=== PATIENT | male | born 1960 | race Caucasian/White ===

== ENCOUNTER 2016-03-25 09:55 | Emergency (ER) | payer OTHER ==
[2016-03-25 11:15] VITALS: BP 123/79
--- NOTE | 2016-03-25 12:30 | RAD ---
Indication: Medial RIGHT knee pain for 3 days following twisting injury with instability 3 days ago. Comparison: None. Technique: AP, tunnel, lateral, sunrise views RIGHT knee. Report: Normal alignment. Negative for effusion or fracture. Minimal medial and patellofemoral joint osteophytosis. Negative for significant joint space narrowing. Unremarkable soft tissue contours. IMPRESSION: No traumatic injury evident.
--- NOTE | 2016-03-25 12:46 | UC ---
Knee Pain HPI - HPI Summary HPI Summary: pt reports emmie he was walking at work on tuesday and stepped over an time on the floor and when he put his right foot down, his right knee "gave out" heard a "pop" had sudden onset of pain and swelling to right medial aspect of knee. c/o pain has worsened since onset, pain is with weight bearing and has limited ROM secondary to pain. - History of Current Complaint Chief Complaint: UCLowerExtremity Stated Complaint: RIGHT KNEE PAIN-WC Time Seen by Provider: 03/25/16 11:42 Hx Obtained From: Patient Onset/Duration: Sudden Onset, Lasting Days Severity Initially: Moderate Severity Currently: Moderate Character: Dull, Aching, Stiffness Aggravating Factor(s): Movement, Weight Bearing, Prolonged Standing, Stairs Alleviating Factor(s): Rest, Position Associated Signs And Symptoms: Positive: Swelling, Bruising Able to Bear Weight: Yes - minimal - Risk Factors Gout Risk Factor: Male - Allergies/Home Medications Allergies/Adverse Reactions: Allergies Allergy/AdvReac Type Severity Reaction Status Date / Time No Known Allergies Allergy Verified 03/25/16 11:15 Home Medications: Home Medications Ibuprofen TAB* [Motrin TAB* 800 MG] 800 mg PO Q6H PRN 03/25/16 [History Confirmed 03/25/16] PMH/Surg Hx/FS Hx/Imm Hx Previously Healthy: Yes Endocrine History Of: Denies: Diabetes, Thyroid Disease Cardiovascular History Of: Reports: Hypertension Denies: Cardiac Disorders Respiratory History Of: Denies: COPD, Asthma GI/ History Of: Denies: Ulcer - Surgical History Surgical History: Yes Surgery Procedure, Year, and Place: right shoulder replacement 2011 - Family History Known Family History: Positive: Cardiac Disease - Social History Occupation: Employed Full-time Lives: With Family Alcohol Use: Occasionally Substance Use Type: None Smoking Status (MU): Heavy Every Day Tobacco Smoker Amount Used/How Often: 7 cigs per day Length of Time of Smoking/Using Tobacco: started age 22 Review of Systems Constitutional: Negative Skin: Bruising - small lmedial aspect right knee Eyes: Negative ENT: Negative Respiratory: Negative Cardiovascular: Negative Gastrointestinal: Negative Genitourinary: Negative Motor: Decreased ROM - secondary to pain, Weakness - right knee econdary to pain Neurovascular: Negative Musculoskeletal: Arthralgia - right knee, Decreased ROM - right knee, Edema - medial aspect right knee, Myalgia Neurological: Negative Psychological: Negative All Other Systems Reviewed And Are Negative: Yes Physical Exam Triage Information Reviewed: Yes Appearance: Well-Appearing Vital Signs: Initial Vital Signs Temp 98.5 F 03/25/16 11:11 Pulse 83 03/25/16 11:11 Resp 16 03/25/16 11:11 BP 123/79 03/25/16 11:11 Pulse Ox 99 03/25/16 11:11 Vital Signs Reviewed: Yes Eye Exam: Normal Respiratory: Positive: No respiratory distress Musculoskeletal: Positive: Strength Limited @, ROM Limited @, Edema @ - right knee, exam limited secondary to pain Neurological Exam: Normal Psychological Exam: Normal Skin Exam: Other - small bruise medial aspect right knee Knee Pain Course/Dx - Differential Dx/Diagnosis Differential Diagnosis/HQI/PQRI: Internal Derangement Of Knee, Sprain Provider Diagnoses: right knee sprain Discharge - Discharge Plan Condition: Stable Disposition: HOME Patient Education Materials: Knee Sprain (ED) Referrals: Chirag Lee MD [Medical Doctor] - Leatha Resendez PA [Primary Care Provider] - Additional Instructions: You have been referred to Dr. Lee's office. Please go to his office after 1pm today for further evaluation and treatment.
== END 2016-03-25 12:51 | disposition home or self-care (01) ==
LOC: UCCORT 09:55
DX: S83.91XA Sprain of unspecified site of right knee, initial encounter (principal); X58.XXXA Exposure to other specified factors, initial encounter; Y93.01 Activity, walking, marching and hiking; Y92.89 Other specified places as the place of occurrence of the external cause; Y99.0 Civilian activity done for income or pay; F17.210 Nicotine dependence, cigarettes, uncomplicated
CPT/HCPCS: 99201; G0463

== ENCOUNTER 2016-09-08 09:57 | Day surgery (SDC) | payer OTHER ==
--- NOTE | 2016-08-26 20:18 | HP ---
PREOPERATIVE HISTORY AND PHYSICAL: DATE OF ADMISSION/SURGERY: 09/08/16 DATE OF OFFICE VISIT: 08/26/16 ATTENDING SURGEON: Dr. Beni Veliz. (DICTATED BY CLEMENT CAMPBELL) PROCEDURE: Right knee arthroscopy, partial meniscectomy. CHIEF COMPLAINT: Right knee pain. HISTORY OF PRESENT ILLNESS: Mr. Cabral is a 56-year-old male who presents to the clinic for ongoing right knee pain, catching and locking due to a medial and lateral meniscal tear. He has failed conservative measures to include physical therapy and therefore he has agreed to undergo a right knee arthroscopy, partial meniscectomy with Dr. Veliz on 09/08/16. PAST MEDICAL HISTORY: 1. Hypertension. 2. Depression. 3. Diabetes. PAST SURGICAL HISTORY: 1. Eye surgery. 2. Testicular cancer. 3. Right shoulder replacement. Denies prior complications with anesthesia. MEDICATIONS: 1. Lisinopril/hydrochlorothiazide 10/12.5 mg 1 by mouth daily. 2. Bupropion HCl 150 mg 2 tabs by mouth every day. 3. Vitamin D one by mouth weekly. 4. Ibuprofen 200 mg 4 by mouth as needed. 5. Escitalopram oxalate 10 mg 1 by mouth every day. 6. Metformin 850 mg 1 by mouth twice a day. 7. Benzonatate 200 mg 1 by mouth 3 times a day as needed for cough. ALLERGIES: No known drug allergies. FAMILY HISTORY: Positive for breast cancer. Denies family history of DVT or PE. SOCIAL HISTORY: The patient is single. 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 He is a light smoker. He smokes 5 to 10 cigarettes a day. He reports occasional alcohol consumption. REVIEW OF SYSTEMS: Negative for fevers, chills, or night sweats. No known anesthesia problems. HEENT: Negative for headache, lightheadedness or syncopal episodes. Integumentary: Negative for abrasions, lesions, or open wounds. Cardiothoracic: Negative for chest pain, palpitations, or edema. Positive for hypertension. Pulmonary: Negative for shortness of breath with exertion, chronic cough or COPD. GI: Negative for nausea, vomiting, diarrhea, constipation, or GERD. : Negative for nocturia, urinary frequency, history of UTIs, or kidney problems. Musculoskeletal: Positive for current complaint. Neuro: Negative for numbness, tingling, negative for history of seizure, stroke , or epilepsy. Endocrine: Positive for diabetes. Denies thyroid disease. Heme : Negative for easy bruising, anemia, excessive bleeding, history of DVT or PE , or history of bleeding disorder. Infectious Disease: Negative for history of MRSA, hep C or HIV. PHYSICAL EXAMINATION GENERAL: A well-developed, well-nourished 56-year-old male, in no acute distress. Alert and oriented x3. Appropriate mood and affect. VITAL SIGNS: Height 65 inches, weight 212, pulse 58, blood pressure 128/80, respiratory rate 19, temperature 97.7. BMI 35.3. HEENT: Normocephalic, atraumatic. PERRLA. Throat clear. NECK: Supple. PULMONARY: Lungs are clear to auscultation bilaterally. No wheezing, rhonchi, or rales. CARDIO: Regular rate and rhythm. S1, S2. No murmurs, gallops, or rubs. No edema. ABDOMEN: Positive bowel sounds, soft, nontender. NEUROLOGIC: Alert and oriented x3. Cranial nerves grossly intact. Sensation intact to light touch. MUSCULOSKELETAL: Right knee: Skin is intact. No warmth or erythema. Tenderness over the medial joint line. Positive Derek. Range of motion is 0 to 120. Moderate effusion. Stable varus and valgus stress. Stable Wiliam. Negative posterior drawer. +2 PT and DP pulse. Sensation intact to light touch distally. STUDIES: MRI of the right knee reveals anterior lateral meniscus tear with presence of cyst and a posterior medial meniscus tear. IMPRESSION: Right knee anterior lateral meniscus tear and medial meniscus tear. PLAN: The patient is scheduled to undergo to a right knee arthroscopy, partial meniscectomy with Dr. Veliz on 09/08/16. He will return to the office 10 to 14 days postoperative for followup and suture removal. Percocet will be used for postop pain management. CLEMENT CAMPBELL [id number]/[facility] #: [id number] MTDD
[~2016-09-08 09:57] MED LIST: Buffered Lidocaine 0.9% SYRIN* 5 ML/SYR SYRINGE INTRADERM ONE; Famotidine IV* 10 MG/ML 2 ML (20 mg) IV ONE; Famotidine IV* 10 MG/ML 2 ML (20 mg) ONE
[2016-09-08] MEDS ORDERED: ceFAZolin 2 GM PREMIX(*) 2 GM/50 ML BAG IVPB ONE (09:58)
[2016-09-08] MEDS ORDERED: Buffered Lidocaine 0.9% SYRIN* 5 ML/SYR SYRINGE ONE (09:58)
[2016-09-08] MEDS ORDERED: HYDROmorphone* 1 MG/ML 1 ML SYR IV PRN (10:43)
[2016-09-08] MEDS ORDERED: oxyCODONE/Acetamin 5/325 MG* TAB PO PRN (10:43)
[2016-09-08] MEDS ORDERED: DiMENhydriNATE IV* 50 MG/ML VIAL IV PUSH PRN (10:43)
[2016-09-08] MEDS ORDERED: Bupivacaine 0.25% EPI 200,000* 30 ML SDV ONE (10:43)
[2016-09-08] MEDS ORDERED: Bupivacaine 0.25% SDV* 30 ML ONE (10:43)
[2016-09-08] MEDS ORDERED: Levalbuterol 0.63MG/3ML NEB INH ONE (10:52)
[2016-09-08] MEDS ORDERED: Levalbuterol 1.25MG/0.5ML NEB ONE (10:57)
[2016-09-08] MEDS ORDERED: Ondansetron INJ* 2 MG/ML VIAL ONE (10:57)
[2016-09-08] MEDS ORDERED: Ketorolac INJ* 30 MG/ML 1 ML VIAL ONE (10:57)
[2016-09-08] MEDS ORDERED: fentaNYL* 50 MCG/ML 2 ML VIAL (100 MCG VIAL) ONE ×2 (10:57→12:48)
[2016-09-08] MEDS ORDERED: Midazolam* 1 MG/ML 5 ML VIAL (5 MG) ONE (10:57)
[2016-09-08] MEDS ORDERED: Dexamethasone IV* 4 MG/ML 1 ML (4 MG) ONE (10:57)
[2016-09-08] MEDS ORDERED: Propofol* 10 MG/ML 20 ML BTL IV PUSH ONE (10:57)
[2016-09-08] MEDS ORDERED: Lidocaine 2% PF * 5 ML VIAL ONE (10:57)
[2016-09-08 14:55] VITALS: BP 132/87
--- NOTE | 2016-09-24 16:54 | OP ---
CC: Jason BETANCOURT PA* DATE OF SURGERY: 09/08/16 - [facility] DATE OF : 62 ATTENDING SURGEON: Beni Veliz MD TAX RECORD CLERK: CLEMENT Romero ANESTHESIOLOGIST: Azul Mullen MD * ANESTHESIA: General. PRE-OP DIAGNOSIS: Right knee medial and lateral meniscal tears. POST-OP DIAGNOSES: Medial and lateral meniscal tears as well as loose body and mild chondrosis of patellofemoral joint as well as the lateral joint. OPERATIVE PROCEDURE: Right knee arthroscopy with: 1. Partial medial meniscectomy. 2. Partial lateral meniscectomy. 3. Chondroplasty of the lateral femoral condyle as well as the patella. 4. Removal of numerous loose bodies at least 2 greater than 5 mm. COMPLICATIONS: None. ESTIMATED BLOOD LOSS: Minimal. TOURNIQUET TIME: 0 minutes. INDICATION: Ted Cabral is a 66-year-old male, who sustained a work-related injury in March of this year. He has had persistent catching and locking. He also was diagnosed with MCL sprain, which had healed. He has failed physical therapy and injections and has persistent mechanical symptoms. He has failed conservative treatment and he has elected to proceed operative treatment. Risks included, but are not limited to bleeding, infection, damage to nerves, vessels, surrounding structures, wound nonhealing, persistent pain, need for further surgery, risk of anesthesia, risk of DVT, scarring, incomplete relief of symptoms, worsening arthritis. DESCRIPTION OF PROCEDURE: The patient was greeted in the preoperative area by the attending surgeon. Correct extremity was marked and consent was confirmed. The patient was then brought back to the operative suite where he was placed in supine position on operating table. He then underwent general anesthesia and LMA intubation after which the knee was examined and he was found to have 1 to 130 degrees of range of motion. He was found to have a mild effusion. An unsterile tourniquet was placed high on the proximal thigh. The lateral post was positioned. After a miniature surgical pause, the knee was intraarticularly injected with 0.25% of Marcaine with epi. The leg was then prepped and draped with usual sterile fashion beginning with chlorhexidine soap scrub, and alcohol wipe, and a final prep with ChloraPrep. After appropriate surgical pause indicating side, site, procedure, and administration of antibiotics, the anterolateral portal was made sharply with an 11 blade, the scope was repositioned in the suprapatellar pouch. There was evidence of grade 2 changes with unstable fraying of the patella. There was mild chondral changes to the trochlea, but mostly 0 to 1 degree changes. The scope was positioned in the medial and lateral gutters and they were loose bodies identified in both. The scope was repositioned into the notch and the anteromedial portal was made in an outside in fashion with a needle used to localize. The shaver was used to debride the fat-pad anteriorly as well as removed the loose bodies from the gutters. There were at least 2 that were greater than 5 mm. At this point, attention was directed to medial compartment. Medial femoral condyle had grade 1 changes and medial tibial plateau had grade 1 changes with softening. There was an unstable meniscal tear that was parrot beak tear that was present and unstable, flapping into the joint. This was then removed using arthroscopic biters and beatriz. Once this was complete and a stable layer had been identified, attention was directed to lateral compartment. The knee was placed in a [id number] position. The lateral femoral condyle had grade 0 to 1 changes. The lateral tibial plateau had area of grade 2 changes with unstable flaps. A small chondroplasty was done. The lateral meniscus had unstable fraying at the root and at the body of the meniscus. Once the meniscectomy was complete as well as chondroplasty complete, joint was thoroughly lavaged. The knee was then copiously irrigated. The scope was placed in the Cecil portal to make sure there were no further loose bodies present or loose debris and then the knee again was thoroughly lavaged. The wounds were copiously irrigated. They were closed with 3-0 nylon in an interrupted fashion. Sterile dressings were applied. The knee was intraarticularly injected with 0.25% of Marcaine plain. Sterile dressings were applied, the Cryo/Cuff was applied. He was then awoken from anesthesia and transferred to the PACU in stable condition. POSTOPERATIVE PLAN: He will be weightbearing as tolerated. He will have to work on range of motion. He will be discharged on pain medication. DVT prophylaxis was considered, but deferred due to no previous personal or family history. He will be placed on aspirin for 10 days postoperatively. I will see the patient back in 10 to 14 days. [id number]/[facility] #: [id number] MTDD
== END 2016-09-08 14:45 | disposition home or self-care (01) ==
LOC: OR 09:57
PROVIDERS: ATTEND Orthopaedic Surgery
DX: S83.241A Other tear of medial meniscus, current injury, right knee, initial encounter (principal); S83.281A Other tear of lateral meniscus, current injury, right knee, initial encounter; X50.0XXA Overexertion from strenuous movement or load, initial encounter; Y92.89 Other specified places as the place of occurrence of the external cause; Y99.0 Civilian activity done for income or pay; F17.210 Nicotine dependence, cigarettes, uncomplicated; I10 Essential (primary) hypertension; E11.9 Type 2 diabetes mellitus without complications; Z79.84 Long term (current) use of oral hypoglycemic drugs
CPT/HCPCS: 93005; A9270-GY; J0690; J1100; J1885; J2250; J2405; J2704; J3010

== ENCOUNTER 2017-10-10 08:55 | Day surgery (SDC) | payer BC ==
--- NOTE | 2017-10-07 10:32 | HP ---
PREOPERATIVE HISTORY AND PHYSICAL: DATE OF ADMISSION: 10/10/17 PROVIDER: Dr. Beni Veliz * (DICTATED BY CLEMENT MILLER) CHIEF COMPLAINT: Right knee pain. HISTORY OF PRESENT ILLNESS: Ted is a 57-year-old gentleman who has been followed by Dr. Veliz for a small mass on the lateral aspect of his knee. It has waxed and waned; however, it has returned and stayed for quite some time, and has become more painful and limits his range of motion. He denies any numbness or tingling. He wants it surgically removed. PAST MEDICAL HISTORY: Hypertension, testicular cancer, depression, and prediabetes. PAST SURGICAL HISTORY: Eye surgery, testicular cancer surgery, right shoulder replacement, right knee arthroscopy, and carpal tunnel release. He reports no complications with anesthesia. CURRENT MEDICATIONS: 1. Lisinopril/hydrochlorothiazide 10/12.5 mg one p.o. q.day. 2. Bupropion HCl ER 150 mg two tabs p.o. q.day. 3. Ibuprofen 200 mg as needed. ALLERGIES: No known drug allergies. FAMILY HISTORY: Positive for breast cancer, diabetes. No DVT or PE. SOCIAL HISTORY: He is single. 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 He smokes less than a half a pack of cigarettes per day and has for 14 years. He drinks on occasion. He is right-hand dominant. REVIEW OF SYSTEMS: A 14-point review of systems was discussed with the patient. All systems were negative except discussed in the HPI. PHYSICAL EXAMINATION GENERAL: He is a well-developed, well-nourished, pleasant male in no acute distress at rest. He is alert and oriented x3 with appropriate mood and affect. VITAL SIGNS: The patient is 5 feet 5 inches, 231 pounds. Blood pressure 147/84 , pulse 82, respirations 16. HEENT: Normocephalic, atraumatic. His hearing and vision are grossly intact. NECK: Trachea is midline. RESPIRATORY: Lungs are clear to auscultation bilaterally. No wheezes, rales, or rhonchi. CARDIOVASCULAR: Regular rate and rhythm. No murmurs, rubs, or gallops. Normal S1, S2. ABDOMEN: Soft, nondistended, nontender. Normal bowel sounds. EXTREMITIES: Exam of the right knee shows skin to be intact. There is no erythema or warmth. He has well-healed arthroscopy incisions. No effusion in the knee. He has 0 to 120 degrees of range of motion. Stable varus and valgus stress test. There is a soft tissue mass over the lateral aspect of the knee just lateral to the joint line; it is tender to palpation. He has a negative Tinel's. Sensation to light touch is intact distally. He has a normal vascular exam. IMPRESSION: Right knee mass. PLAN: The patient is to undergo a right knee mass excision by Dr. Veliz on . The risks, benefits, and postoperative course were discussed with the patient at length and he would like to proceed. All of his questions were answered to his full satisfaction. He is understanding to call if he develops any problems or concerns. CLEMENT MILLER [id number]/[facility] #: [id number] MOLINA
[~2017-10-10 08:55] MED LIST changes: +Dexamethasone IV* 4 MG/ML 1 ML (4 MG) IV SLOW PU ONE; -Famotidine IV* 10 MG/ML 2 ML (20 mg) ONE
[2017-10-10] MEDS ORDERED: Dexamethasone IV* 4 MG/ML 1 ML (4 MG) ONE (09:07)
[2017-10-10] MEDS ORDERED: ceFAZolin 2 GM PREMIX (*) 2 GM/50 ML BAG IVPB ONE (09:07)
[2017-10-10] MEDS ORDERED: Famotidine IV* 10 MG/ML 2 ML (20 mg) ONE (09:07)
[2017-10-10] MEDS ORDERED: Bupivacaine 0.5% PF 10 ML VIAL INJ ONE (11:11)
[2017-10-10] MEDS ORDERED: Midazolam* 1 MG/ML 5 ML VIAL (5 MG) ONE (11:14)
[2017-10-10] MEDS ORDERED: fentaNYL* 50 MCG/ML 2 ML VIAL (100 MCG VIAL) ONE (11:14)
[2017-10-10] MEDS ORDERED: Propofol* 10 MG/ML 20 ML BTL IV PUSH ONE (11:14)
[2017-10-10] MEDS ORDERED: Lidocaine 2% PF * 5 ML VIAL ONE (11:14)
[2017-10-10] MEDS ORDERED: Ketorolac INJ* 30 MG/ML 1 ML VIAL ONE (11:32)
[2017-10-10] MEDS ORDERED: Ondansetron INJ* 2 MG/ML VIAL ONE (11:43)
[2017-10-10] MEDS ORDERED: Naloxone* 0.4 MG/ML 1 ML VIAL IV PRN (12:20)
[2017-10-10] MEDS ORDERED: fentaNYL* 50 MCG/ML 2 ML VIAL (100 MCG VIAL) IV PRN (12:20)
[2017-10-10] MEDS ORDERED: oxyCODONE/Acetamin 5/325 MG* TAB PO PRN (12:20)
[2017-10-10] MEDS ORDERED: HYDROcodone/ACETAMIN 5-325 MG* 1 TAB PO PRN (12:20)
[2017-10-10] MEDS ORDERED: PROCHLORPERAZINE INJ 5 MG/ML 2 ML VIAL IV PRN (12:20)
[2017-10-10 13:03] VITALS: BP 138/81
--- NOTE | 2017-10-20 16:35 | OP ---
DATE OF OPERATION: 10/10/17 - [facility] DATE OF : 62 SURGEON: Beni Veliz MD. FINANCIAL SECRETARY: CLEMENT Rubio, and "Radha Call." An leasing assistant was needed for the entirety of the case to help with positioning, retraction, and was utilized throughout the portions of the case. ANESTHESIA: General. PRE-OP DIAGNOSIS: Right lateral knee mass. POST-OP DIAGNOSIS: Right lateral knee ganglion. OPERATIVE PROCEDURE: Right knee lateral mass excision. COMPLICATIONS: None. ESTIMATED BLOOD LOSS: Minimal. TOURNIQUET TIME: 20 minutes. IMPLANTS: None. INDICATIONS: Ted Cabral is a 57-year-old male who has had persistent right knee mass with swelling that has been coming and going. It is very painful for him, which we have done imaging and we attempted to take this rather earlier, but it had decreased. Again, it is very painful. We tried an aspiration in the clinic , but we were unable to aspirate it. He had no nerve symptoms. He has some arthritis in his knee, but does not complain of arthritic type of symptoms. The mass has bothered him quite a bit. It is interfering with his weightbearing and mobilization. Risks and benefits of surgery were discussed at length, which included, but were not limited to bleeding, infection, damage to nerves, vessels, surrounding structures, wound not healing, persistent pain, need for further surgery, scarring, stiffness, incomplete relief of symptoms, risks of anesthesia, risks of DVT. DESCRIPTION OF PROCEDURE: The patient was greeted in the preoperative area by the attending surgeon. The correct extremity was marked and the consent was confirmed. The patient was brought back to the operating suite where he was placed in supine position on the operating table. He underwent general anesthesia with endotracheal intubation, after which a nonsterile tourniquet was placed high in the proximal thigh. The knee lateral post was positioned. The right leg was prepped and draped in the usual sterile fashion beginning with chlorhexidine soap, scrub, and alcohol wipe and final prep with ChloraPrep. After appropriate surgical pause indicating site, site, procedure, and administration of antibiotics, a 15 blade was used to make an incision in line over the mass, which was marked out preoperatively. Soft tissue was carefully dissected to expose the fascial layer. As the dissection got deeper into deeper fascial layers, I have gathered this is a ganglion. This was then carefully shelled out with care to try to preserve and remove all the entire cyst wall. This was removed in its entirety and then sent as pathology specimen for confirmation of ganglion. Once this has been completely removed, the bed was roughened using a 15 blade to allow for bleeding. The electrocautery device was used to try to cauterize the stump and to prevent further recurrence. Wounds were then copiously irrigated with sterile saline. Soft tissues were then closed in layers with 2-0 Vicryl. Skin was closed with Monocryl. Sterile dressings were applied. The lateral wound was then injected with 0.25% Marcaine plain. The tourniquet was deflated for a total time of 21 minutes. The patient was awoken from anesthesia and transferred to PACU in stable condition. POSTOPERATIVE PLAN: He will be weightbearing as tolerated. He will follow up with me in approximately 2 weeks. We will send the pathology specimen. He will be discharged on pain medication and short course of antibiotics. DVT prophylaxis was considered, but deferred due to no previous personal or family history. I will see the patient back in 2 weeks. [id number]/[facility] #: [id number] MOLINA
== END 2017-10-10 13:05 | disposition home or self-care (01) ==
LOC: OREAST 08:55
PROVIDERS: ATTEND Orthopaedic Surgery
DX: M67.461 Ganglion, right knee (principal); I10 Essential (primary) hypertension; Z72.0 Tobacco use; Z85.47 Personal history of malignant neoplasm of testis; R73.01 Impaired fasting glucose; F32.9 Major depressive disorder, single episode, unspecified
CPT/HCPCS: 88304; J0690; J1100; J1885; J2250; J2405; J2704; J3010